=== PATIENT | male | born 1955 | race American Indian/Alaskan Native ===

== ENCOUNTER 2017-11-24 16:01 | Inpatient (IN) | payer MEDICARE ==
[2017-11-24] MEDS ORDERED: SUBLIMAZE IV ONE (16:58)
[2017-11-24] MEDS ORDERED: KEPPRA 1,000 MG/NS 0.75% 100ML 1,000 MG/100 ML BAG IV ONE (16:58)
--- NOTE | 2017-11-24 16:59 | Emergency Department Report ---
<SEBLE ROLDAN - Last Filed: 11/24/17 19:50> ED General Adult HPI - General Chief complaint: Seizure Stated complaint: BACK NECK PAIN Time Seen by Provider: 11/24/17 16:43 Source: patient, family, EMS (ems notes not available at time of chart dictation), RN notes reviewed, old records reviewed Mode of arrival: Stretcher Limitations: Physical Limitation - History of Present Illness Initial comments: This is a 62-year-old male who is not known to this provider previously. He has a history of stroke with residual left-sided deficits, heart disease, pacemaker, atrial fibrillation, currently on xarelto He also has a history of seizure disorder. He ran out of his seizure medication , Keppra, 3 days ago. He reports feeling like he was in his usual state of health and then had a breakthrough seizure today. He reports shaking, fell back out of the wheelchair, hitting his head and his neck. He has achy pain which increases with palpation and decreases with rest. He denies new weakness or numbness. He has no new neurologic symptoms. He currently has no midline neck pain, chest pain, abdominal pain, shortness of breath or urinary symptoms. -: Sudden Severity scale (0 -10): 5 Consistency: now resolved Improves with: none Worsens with: none Associated Symptoms: headaches, seizure, weakness (chronic left-sided weakness) . denies: confusion, chest pain, cough, diaphoresis, fever/chills, loss of appetite, malaise, nausea/vomiting, rash, shortness of breath, syncope - Related Data Allergies Allergy/AdvReac Type Severity Reaction Status Date / Time No Known Allergies Allergy Verified 11/24/17 16:31 ED Review of Systems ROS: Stated complaint: BACK NECK PAIN Other details as noted in HPI Comment: All other systems reviewed and negative ED Past Medical Hx - Past Medical History Previous Medical History?: Yes Hx Heart Attack/AMI: No Hx Congestive Heart Failure: Yes Hx Seizures: Yes Additional medical history: Coronary artery disease, Stroke, A-FIB, Pacemaker - Surgical History Past Surgical History?: Yes Hx Coronary Stent: No Hx Pacemaker: Yes - Social History Smoking Status: Never Smoker Substance Use Type: None ED Physical Exam - General Limitations: Physical Limitation General appearance: alert, in no apparent distress - Head Head exam: Present: atraumatic, normocephalic - Eye Eye exam: Present: normal appearance, EOMI. Absent: nystagmus - ENT ENT exam: Present: normal exam, normal orophraynx, mucous membranes moist, normal external ear exam - Neck Neck exam: Present: normal inspection, full ROM. Absent: tenderness, meningismus - Respiratory Respiratory exam: Present: normal lung sounds bilaterally. Absent: respiratory distress - Cardiovascular Cardiovascular Exam: Present: regular rate, irregular rhythm, normal heart sounds. Absent: systolic murmur, diastolic murmur, rubs, gallop - GI/Abdominal GI/Abdominal exam: Present: soft. Absent: distended, tenderness, guarding, rebound, rigid, pulsatile mass - Rectal Rectal exam: Present: deferred - Extremities Exam Extremities exam: Present: normal inspection, normal capillary refill, other (2 + pulses noted in the bilateral upper, lower extremities. Compartments soft. No long bony tenderness. The pelvis is stable.). Absent: full ROM, calf tenderness - Back Exam Back exam: Present: normal inspection, full ROM. Absent: tenderness, CVA tenderness (R), paraspinal tenderness, vertebral tenderness - Neurological Exam Neurological exam: Present: alert, oriented X3, motor sensory deficit (there is a left upper extremity contracture. There is 3 out of 5 strength left upper extremity. There is 3.5 out of 5 strength left lower extremity.), other ( sensation is intact to light touch bilateral upper, lower extremities. 5/5 strength right upper, right lower extremity.). Absent: CN II-XII intact (there is a left-sided facial droop. Extraocular movements are intact. Shoulder shrug is intact. Tongue is midline.) - Psychiatric Psychiatric exam: Present: normal affect, normal mood - Skin Skin exam: Present: warm, dry, intact, normal color. Absent: rash ED Course Vital Signs 11/24/17 11/24/17 11/24/17 16:08 16:27 16:36 Temperature 98.4 F 98.4 F Pulse Rate 72 72 70 Respiratory 16 16 12 Rate Blood Pressure 110/76 Blood Pressure 110/76 [Right] O2 Sat by Pulse 100 100 97 Oximetry 11/24/17 18:55 Temperature Pulse Rate Respiratory 15 Rate Blood Pressure Blood Pressure [Right] O2 Sat by Pulse 100 Oximetry - Reevaluation(s) Reevaluation #1: 11/24/17 19:50 Care is transferred to the oncoming physician, Dr. Yudi Ruggiero, to contact the hospitalist for admission. ED Medical Decision Making - Lab Data Result diagrams: 11/24/17 17:11 11/24/17 16:58 Vital Signs 11/24/17 11/24/17 11/24/17 16:08 16:27 16:36 Temperature 98.4 F 98.4 F Pulse Rate 72 72 70 Respiratory 16 16 12 Rate Blood Pressure 110/76 Blood Pressure 110/76 [Right] O2 Sat by Pulse 100 100 97 Oximetry 11/24/17 18:55 Temperature Pulse Rate Respiratory 15 Rate Blood Pressure Blood Pressure [Right] O2 Sat by Pulse 100 Oximetry Lab Results 11/24/17 11/24/17 11/24/17 Range/Units 16:58 17:11 17:11 WBC 4.0 L (4.5-11.0) K/mm3 RBC 4.24 (3.65-5.03) M/mm3 Hgb 13.2 (11.8-15.2) gm/dl Hct 39.1 (35.5-45.6) % MCV 92 (84-94) fl MCH 31 (28-32) pg MCHC 34 (32-34) % RDW 14.6 (13.2-15.2) % Plt Count 146 (140-440) K/mm3 PT 15.8 H (12.2-14.9) Sec. INR 1.19 H (0.87-1.13) Sodium 138 (137-145) mmol/L Potassium 3.7 (3.6-5.0) mmol/L Chloride 100.1 (98-107) mmol/L Carbon Dioxide 26 (22-30) mmol/L Anion Gap 16 mmol/L BUN 16 (9-20) mg/dL Creatinine 0.9 (0.8-1.5) mg/dL Estimated GFR > 60 ml/min BUN/Creatinine Ratio 18 % Glucose 90 (75-100) mg/dL Calcium 9.5 (8.4-10.2) mg/dL Total Creatine Kinase (55-170) units/L Digoxin (0.9-2.0) ng/mL 11/24/17 11/24/17 Range/Units 17:11 17:11 WBC (4.5-11.0) K/mm3 RBC (3.65-5.03) M/mm3 Hgb (11.8-15.2) gm/dl Hct (35.5-45.6) % MCV (84-94) fl MCH (28-32) pg MCHC (32-34) % RDW (13.2-15.2) % Plt Count (140-440) K/mm3 PT (12.2-14.9) Sec. INR (0.87-1.13) Sodium (137-145) mmol/L Potassium (3.6-5.0) mmol/L Chloride (98-107) mmol/L Carbon Dioxide (22-30) mmol/L Anion Gap mmol/L BUN (9-20) mg/dL Creatinine (0.8-1.5) mg/dL Estimated GFR ml/min BUN/Creatinine Ratio % Glucose (75-100) mg/dL Calcium (8.4-10.2) mg/dL Total Creatine Kinase 84 (55-170) units/L Digoxin 0.6 L (0.9-2.0) ng/mL - EKG Data -: EKG Interpreted by Me - EKG Data When compared to previous EKG there are: previous EKG unavailable 11/24/17 19:39 Ventricular paced rhythm, good capture, left axis deviation, QTC prolonged, not a STEMI - Radiology Data Radiology results: report reviewed, image reviewed Noncontrast CT scan of the cervical spine is negative for acute disease. DJD is noted. Noncontrast CT scan of the brain shows subacute infarct, as well as old areas of infarct. No hemorrhages noted. - Medical Decision Making Differential diagnosis, including but not limited to: Breakthrough seizure, medication refill, intracranial hemorrhage, DJD, spinal fracture Assessment and plan: 62-year-old gentleman with chronic left-sided hemiparesis, on systemic anticoagulation, who has taken his anticoagulant within the past 24 hours, with breakthrough seizure, most likely in the context of running out of his seizure medication. He is not seizing currently, and has an adjusted NIH score of 0. His left-sided weakness is not a new, worsened or different, and also has a left-sided facial droop which is not a new, worsening or different. Given that his NIH score which adjusted is 0, and given that he has taken his systemic anticoagulation within the past 24 hours, he is not a thrombolysis candidate. A noncontrast CT scan of the brain showed no bleed, but suggested old infarct and acute versus subacute infarct. A noncontrast CT scan of the cervical spine was negative for fracture, dislocation. I have contacted the consulting neurologist on-call, Dr. Eladia Palomo, who agrees the patient is not a TPA or thrombolysis candidate based on the history, agrees with IV loading dose of Keppra, and also agrees that based on the history , patient does not require emergent angiogram of the head and neck. She does agree that it would be appropriate to admit the patient for subacute stroke workup with appropriate imaging and diagnostics. The Hospital physician is paged to arrange admission. I discussed this with the patient and his daughter, both of whom were amenable to hospitalization to exclude recurrent stroke. Critical care attestation.: If time is entered above; I have spent that time in minutes in the direct care of this critically ill patient, excluding procedure time. ED Disposition Disposition: -09 OP ADMIT IP TO THIS HOSP Is pt being admited?: Yes Does the pt Need Aspirin: Yes Condition: Good Referrals: PRIMARY CARE, [Primary Care Provider] - 3-5 Days <MAYANK RUGGIERO III - Last Filed: 11/24/17 21:16> ED Course - Consultations Consultation #1: Hospitalist consulted for admission. Dr. Kennedy to assume care and admit patient. Full report given to Dr. Kennedy 11/24/17 21:16 ED Medical Decision Making - Lab Data Result diagrams: 11/24/17 17:11 11/24/17 16:58
[2017-11-24 17:28] LABS: Hematocrit 39.1 % (35.5-45.6); Hemoglobin 13.2 gm/dl (11.8-15.2); Mean Corpuscular HGB Conc 34 % (32-34); Mean Corpuscular Hemoglobin 31 pg (28-32); Mean Corpuscular Volume 92 fl (84-94); Platelet Count 146 K/mm3 (140-440); Red Blood Count 4.24 M/mm3 (3.65-5.03); Red Cell Distribution Width 14.6 % (13.2-15.2)
[2017-11-24 17:33] LABS: INR 1.19 (0.87-1.13)
[2017-11-24 17:42] LABS: BUN/Creatinine Ratio 18; Blood Urea Nitrogen 16 mg/dL (9-20); Calcium 9.5 mg/dL (8.4-10.2); Hemolysis Index 1
--- NOTE | 2017-11-24 18:29 | Cat Scan Report ---
FINAL REPORT EXAM: CT HEAD/BRAIN WO CON HISTORY: fall head trauma on xarelto head ache TECHNIQUE: 2.5 millimeter axial images from the skullbase to the vertex. Comparison: None FINDINGS: There is a large area of infarct in the right frontal, temporal and parietal lobes. A portion of the infarct appears to be chronic. A portion of the infarct appears to be acute or subacute. There is a chronic infarct in the right basal ganglia. There is a chronic infarct in the right cerebellum. There is no evidence of intracranial hemorrhage or significant mass effect. Ventricular size is concordant with the degree of volume loss. The visualized portions of the orbits, paranasal and mastoid sinuses are unremarkable. The bony structures are unremarkable in appearance. There is no evidence of fracture. IMPRESSION: 1. Large area of infarct right frontal, temporal and parietal lobes and right basal ganglia. A portion of the infarct appears to be chronic and portion of the infarct appears to be acute or subacute. If there is a clinical suspicion of acute cerebral ischemia, short-term follow-up CT imaging may be helpful. Comparison with previous imaging studies would also be helpful. The presence of an AICD demonstrated on the cavalry scout image for a cervical spine performed today would likely preclude obtaining an MRI. 2. Chronic infarct right cerebellum. 3. No evidence of intracranial hemorrhage or significant mass effect.
--- NOTE | 2017-11-24 18:35 | Cat Scan Report ---
FINAL REPORT EXAM: CT CERVICAL SPINE WO CON HISTORY: fall neck pain TECHNIQUE: Axial helical imaging through the cervical spine with sagittal and coronal reformatted images obtained. Comparison: None FINDINGS: There is reversal of the normal lordotic curve of the cervical spine. The vertebral heights are maintained. The disc spaces appear to be maintained. There is multiple level bony canal stenosis secondary to spondylitic change superimposed on congenital cervical canal stenosis. Visualization detail the contents of the cervical canal is limited by artifact. There is no evidence of fracture or subluxation. The paraspinous soft tissues are unremarkable. There is partial visualization of an AICD. Small collections of air in the venous structures of the neck and skull base are consistent with sequela of recent venous vascular access procedure. IMPRESSION: 1. No evidence of fracture or subluxation. 2. Cervical canal stenosis secondary to spondylitic change superimposed on congenital cervical canal stenosis. 3. Visualization detail the contents of the cervical canal is limited by artifact. Pathology within the cervical canal cannot be excluded with this study. 4. Partial visualization of an AICD.
[2017-11-24] MEDS ORDERED: BABY ASPIRIN PO ONE (18:57)
[2017-11-24 19:30] LABS: Bilirubin,Urine NEG (Negative); Blood,Urine NEG (Negative); Color,Urine Yellow (Yellow); Protein,Urine <15 mg/dL mg/dL (Negative)
[2017-11-24 19:59] LABS: INR 1.21 (0.87-1.13); Partial Thromboplastin Time 30.3 Sec. (24.2-36.6)
[2017-11-24 20:57] LABS: Chol/HDL Ratio 1.91 %
--- NOTE | 2017-11-24 22:48 | History and Physical Report ---
History of Present Illness Date of examination: 11/24/17 History of present illness: 62 year old man with a history of coronary artery disease, seizure, CVA with left-sided weakness, CHF, A. fib comes emergency room complaining of having blurred vision and then having a seizure at home. He stated that he fell out of his wheelchair, seizure lasted for a few seconds. He has chronic left-sided weakness and slurred speech which has not worsened Review of systems Constitutional: no weight loss, chills, fever Ears, eyes, nose, mouth and throat: no nasal congestion, no nasal discharge, no sinus pressure, no vision change, no red eye. Neck: No neck pain or rigidity. Cardiovascular: no chest pain, palpitations Respiratory: no cough, shortness of breath Gastrointestinal: no abdominal pain hematochezia Genitourinary : no frequency , no hematuria Musculoskeletal: no joint swelling or muscle ache Integumentary: no rash, no pruritis Neurological: no parathesias, no numbness, no focal weakness Endocrine: no cold or heat intolerance, no polyuria or polydipsia Hematologic/Lymphatic: no easy bruising, no easy bleeding, no gland swelling Allergic/Immunologic: no urticaria, no angioedema. PAST MEDICAL HISTORY:coronary artery disease, seizure, CVA with left-sided weakness, CHF, A. fib PAST SURGICAL HISTORY: Pacemaker SOCIAL HISTORY: No alcohol, no drugs, tobacco FAMILY HISTORY: Hypertension Medications and Allergies Allergies Allergy/AdvReac Type Severity Reaction Status Date / Time No Known Allergies Allergy Verified 11/24/17 16:31 Home Medications Medication Instructions Recorded Confirmed Last Taken Type Aspirin [Aspirin BABY CHEW TAB] 81 mg PO DAILY 11/24/17 11/24/17 Unknown History Bisacodyl [Dulcolax suppos] 10 mg [place] DAILY 11/24/17 11/24/17 Unknown History Diclofenac Sodium [Voltaren] 100 gm TP QID 11/24/17 11/24/17 Unknown History Digoxin [Lanoxin] 0.125 mg PO DAILY 11/24/17 11/24/17 Unknown History Ferrous Sulfate [Feosol 325 MG tab] 325 mg PO TID 11/24/17 11/24/17 Unknown History Finasteride [Proscar] 5 mg PO DAILY 11/24/17 11/24/17 Unknown History Oxybutynin Chloride [Ditropan Xl] 10 mg PO DAILY 11/24/17 11/24/17 Unknown History Rivaroxaban [Xarelto] 20 mg PO DAILY 11/24/17 11/24/17 Unknown History Rivaroxaban [Xarelto] 20 mg PO DAILY 11/24/17 11/24/17 Unknown History Rosuvastatin Calcium [Crestor] 20 mg PO QHS 11/24/17 11/24/17 Unknown History Sennosides [Senna] 17.2 mg PO DAILY 11/24/17 11/24/17 Unknown History Spironolactone [Aldactone] 25 mg PO DAILY 11/24/17 11/24/17 Unknown History Ciprofloxacin HCl [Ciprofloxacin 500 mg PO Q12HR #6 tab 11/27/17 Unknown Rx TAB] Cyclobenzaprine [Flexeril 10 MG 10 mg PO BID PRN #30 tablet 11/27/17 Unknown Rx TAB] HYDROcodone/APAP 5-325 [[place] 1 each PO Q6H PRN #14 tablet 11/27/17 Unknown Rx 5-325 mg TAB] levETIRAcetam [Keppra TAB] 1,500 mg PO BID #60 tablet 11/27/17 Unknown Rx Exam - Physical Exam Narrative exam: Gen. appearance: Patient lying in bed, no apparent distress HEENT: Normocephalic, atraumatic, pupils equally round and reactive to light, extraocular movement intact, and no sclericterus,. No JVD or thyromegaly or nodule,neck supple, no carotid bruit ,mucous membranes moist, no exudate or erythema Heart: S1, S2, regular rate and rhythm Lungs: Clear bilaterally, breathing comfortable Abdomen: Positive bowel sounds, non-tender, nondistended, no organomegaly Extremity:no edema cyanosis, clubbing Skin: no rash, dry, warm Neuro: Oriented 3, cranial nerves II-12 intact, speech is slurred, left-sided weakness - Constitutional Vitals: Temp Pulse Resp BP Pulse Ox 98.4 F 70 24 119/86 100 11/24/17 16:27 11/24/17 21:00 11/24/17 21:00 11/24/17 21:00 11/24/17 20:00 Results - Labs CBC & Chem 7: 11/27/17 03:36 11/27/17 03:36 Labs: Abnormal lab results 11/24/17 11/24/1711/24/18 Range/Units 17:11 17:11 17:11 WBC 4.0 L (4.5-11.0) K/mm3 PT 15.8 H (12.2-14.9) Sec. INR 1.19 H (0.87-1.13) Troponin T (0.00-0.029) ng/mL HDL Cholesterol (40-59) mg/dL Urine WBC (Auto) (0.0-6.0) /HPF Digoxin 0.6 L (0.9-2.0) ng/mL 11/24/17 11/24/17 11/24/17 Range/Units 18:54 19:14 19:14 WBC (4.5-11.0) K/mm3 PT 16.0 H (12.2-14.9) Sec. INR 1.21 H (0.87-1.13) Troponin T 0.042 H (0.00-0.029) ng/mL HDL Cholesterol 60 H (40-59) mg/dL Urine WBC (Auto) 74.0 H (0.0-6.0) /HPF Digoxin (0.9-2.0) ng/mL - Imaging and Cardiology CT scan - chest: report reviewed Assessment and Plan CT cervical spine reviewed Assessment Subacute CVA Seizure, acute on chronic Abnormal cardiac enzymes CHF, stable Coronary artery disease A. fib Plan Admit to medicine Obtain MRI of the head, carotid Doppler, echo Do neurochecks, swallow screen Consult physical, occupational therapy, neurology Start antiplatelet agent, statin DVT prophylaxis with xarelto
[2017-11-25] MEDS ORDERED: SODIUM CHLORIDE FLUSH SYRINGE 10 ML IV PRN (00:09)
[2017-11-25] MEDS ORDERED: ZOFRAN IV PRN (00:09)
[2017-11-25] MEDS ORDERED: MILK OF MAGNESIA PO PRN (00:09)
[2017-11-25] MEDS ORDERED: REGLAN PO PRN (00:09)
[2017-11-25] MEDS ORDERED: PHENERGAN PR PRN (00:09)
[2017-11-25] MEDS ORDERED: APRESOLINE IV PRN (00:09)
[2017-11-25 01:10] LABS: Creatine Kinase MB 1.8 ng/mL (0.0-4.0)
[2017-11-25] MEDS ORDERED: DUONEB *Not for PRN Use IH SCH (02:00)
[2017-11-25] MEDS ORDERED: PROVENTIL IH PRN ×2 (02:46→03:02)
[2017-11-25] MEDS: ROCEPHIN/NS 1 GM/50 ML 1 GM/50 ML BAG IV SCH (05:08)
[2017-11-25] MEDS ORDERED: DULCOLAX PR PRN (10:00)
[2017-11-25] MEDS ORDERED: NON-FORMULARY (Oxybutynin Chloride [Ditropan Xl] 10 MG) PO SCH (10:00)
[2017-11-25] MEDS ORDERED: ASPIRIN PO SCH (10:00)
[2017-11-25] MEDS ORDERED: LOVENOX SUB-Q SCH ×2 (10:00)
[2017-11-25] MEDS ORDERED: KEPPRA PO SCH ×2 (10:00→14:04)
[2017-11-25] MEDS: PROSCAR PO SCH (10:01)
[2017-11-25] MEDS: SENOKOT PO SCH (10:01)
[2017-11-25] MEDS: BABY ASPIRIN PO SCH (10:01)
[2017-11-25] MEDS: FEOSOL PO SCH ×3 (10:01→21:13)
[2017-11-25] MEDS: DITROPAN XL PO SCH (10:01)
[2017-11-25] MEDS: LANOXIN PO SCH (10:02)
[2017-11-25] MEDS: XARELTO PO SCH (17:29)
[2017-11-25] MEDS: TYLENOL PO PRN (18:32)
--- NOTE | 2017-11-25 19:12 | Progress Note ---
Assessment and Plan Seizure, acute on chronic Subacute CVA, ruled out, chronic changes per Neuro h/o CVA with left sided hameparesis w/o worsening symptom Abnormal cardiac enzymes, no chest pain CHF, stable Coronary artery disease h/o A. fib - monitor at telemetry - cannot Obtain MRI of the head as has ICD, - follow carotid Doppler, echo - Do neurochecks, swallow screen - Consulted physical, occupational therapy, neurology - cont antiplatelet agent, statin - DVT prophylaxis with xarelto - increased dose of keppra to 1500 bid Subjective Date of service: 11/25/17 Interval history: pt seen and examined No acute issue Discussed with neurology, no new stroke on CT Cannot do MRI as patient has ICD Objective - Constitutional Vitals: Vital Signs - 12hr 11/25/17 11/25/17 11/25/17 07:45 09:35 10:02 Temperature 98.6 F 98.5 F Pulse Rate 59 L 71 71 Respiratory 20 20 Rate Blood Pressure 100/67 Blood Pressure 234/102 100/67 [Right] O2 Sat by Pulse 98 100 Oximetry 11/25/17 11/25/17 11/25/17 10:17 11:55 15:31 Temperature 98.2 F 98.4 F Pulse Rate 71 68 Respiratory 18 18 Rate Blood Pressure Blood Pressure 102/72 104/71 [Right] O2 Sat by Pulse 97 100 99 Oximetry General appearance: Present: no acute distress, other (elderly) - EENT Eyes: PERRL, EOM intact ENT: hearing intact, clear oral mucosa Ears: bilateral: normal - Neck Neck: supple, normal ROM - Respiratory Respiratory effort: normal Respiratory: bilateral: CTA - Cardiovascular Rhythm: regular Heart Sounds: Present: S1 & S2. Absent: gallop, rub Extremities: pulses intact, No edema, normal color, Full ROM - Gastrointestinal General gastrointestinal: Present: soft, non-tender, non-distended, normal bowel sounds - Integumentary Integumentary: clear, warm, dry - Musculoskeletal Musculoskeletal: 1, strength equal bilaterally - Neurologic Neurologic: other (left sided hameparesis) - Psychiatric Psychiatric: appropriate mood/affect - Labs CBC & Chem 7: 11/24/17 17:11 11/24/17 16:58 Labs: Abnormal lab results 11/24/17 11/24/17 11/24/17 Range/Units 18:54 19:14 19:14 PT 16.0 H (12.2-14.9) Sec. INR 1.21 H (0.87-1.13) Troponin T 0.042 H (0.00-0.029) ng/mL HDL Cholesterol 60 H (40-59) mg/dL Urine WBC (Auto) 74.0 H (0.0-6.0) /HPF 11/25/17 Range/Units 00:24 PT (12.2-14.9) Sec. INR (0.87-1.13) Troponin T 0.041 H (0.00-0.029) ng/mL HDL Cholesterol (40-59) mg/dL Urine WBC (Auto) (0.0-6.0) /HPF
[2017-11-25] MEDS: KEPPRA PO SCH (21:14)
[2017-11-25] MEDS: PRAVACHOL PO SCH (21:14)
[2017-11-25] MEDS ORDERED: NON-FORMULARY (Rosuvastatin Calcium [Crestor] 20 MG) PO SCH (22:00)
[2017-11-26] MEDS: LANOXIN PO SCH (09:08)
[2017-11-26] MEDS: FEOSOL PO SCH ×3 (09:08→22:46)
[2017-11-26] MEDS: SENOKOT PO SCH (09:08)
[2017-11-26] MEDS: TYLENOL PO PRN (09:08)
[2017-11-26] MEDS: BABY ASPIRIN PO SCH (09:09)
[2017-11-26] MEDS: KEPPRA PO SCH ×2 (09:11→22:46)
[2017-11-26] MEDS: DITROPAN XL PO SCH (09:43)
[2017-11-26] MEDS: PROSCAR PO SCH (09:43)
[2017-11-26] MEDS: ROCEPHIN/NS 1 GM/50 ML 1 GM/50 ML BAG IV SCH (09:44)
--- NOTE | 2017-11-26 17:13 | Progress Note ---
Assessment and Plan Seizure, acute on chronic - - increased dose of keppra to 1500 bid Subacute CVA, ruled out, chronic changes per Neuro - cannot Obtain MRI of the head as has ICD, no change in left sided weakness - cont to Do neurochecks, - Consulted physical, occupational therapy, neurology - cont antiplatelet agent, statin h/o CVA with left sided hameparesis w/o worsening symptom - cont aspirin, statin - Chronic changes on CT head Abnormal cardiac enzymes, no chest pain - consulted cardiology CHF, stable, EF 10% - - consult cardiology for low EF, get medical record from [place] Coronary artery disease - get records from [place] Neck pain - Cervical Ct has no fracture, start flexeril h/o A. fib - on xarelto UTI, started on rocephin iv DVT Px, on xarelto Brief History: a history of coronary artery disease, seizure, CVA with left-sided weakness, CHF , A. fib comes emergency room complaining of having blurred vision and then having a seizure at home. Radiological data: CT cervical spine: 1. No evidence of fracture or subluxation. 2. Cervical canal stenosis secondary to spondylitic change superimposed on congenital cervical canal stenosis. 3. Visualization detail the contents of the cervical canal is limited by artifact. Pathology within the cervical canal cannot be excluded with this study. 4. Partial visualization of an AICD. CT head: 1. Large area of infarct right frontal, temporal and parietal lobes and right basal ganglia. A portion of the infarct appears to be chronic and portion of the infarct appears to be acute or subacute. If there is a clinical suspicion of acute cerebral ischemia, short-term follow-up CT imaging may be helpful. Comparison with previous imaging studies would also be helpful. The presence of an AICD demonstrated on the apprentice plant attendant image for a cervical spine performed today would likely preclude obtaining an MRI. 2. Chronic infarct right cerebellum. 3. No evidence of intracranial hemorrhage or significant mass effect. Subjective Date of service: 11/26/17 Interval history: pt seen and examined No acute issue Discussed with neurology, no new stroke on CT Could not do MRI as patient has ICD Patient c/o neck pain today Objective - Exam Narrative Exam: General appearance: Present: no acute distress, other (elderly) - EENT Eyes: PERRL, EOM intact ENT: hearing intact, clear oral mucosa Ears: bilateral: normal - Neck Neck: supple, normal ROM - Respiratory Respiratory effort: normal Respiratory: bilateral: CTA - Cardiovascular Rhythm: regular Heart Sounds: Present: S1 & S2. Absent: gallop, rub Extremities: pulses intact, No edema, normal color, Full ROM - Gastrointestinal General gastrointestinal: Present: soft, non-tender, non-distended, normal bowel sounds - Integumentary Integumentary: clear, warm, dry - Musculoskeletal Musculoskeletal: 1, strength equal bilaterally - Neurologic Neurologic: other (left sided hameparesis) - Psychiatric Psychiatric: appropriate mood/affect - Constitutional Vitals: Vital Signs - 12hr 11/26/17 05:16 Temperature 99.7 F H Pulse Rate 70 Respiratory 18 Rate Blood Pressure 118/83 O2 Sat by Pulse 99 Oximetry - Labs CBC & Chem 7: 11/24/17 17:11 11/24/17 16:58
[2017-11-26] MEDS: XARELTO PO SCH (18:56)
[2017-11-26] MEDS: PRAVACHOL PO SCH (22:46)
[2017-11-26] MEDS: NORCO 5/325 PO PRN (22:47)
[2017-11-27 04:09] LABS: Basophils # (Auto) 0.1 K/mm3 (0.0-0.1); Basophils % (Auto) 1.2 % (0.0-1.8); Eosinophils # (Auto) 0.1 K/mm3 (0.0-0.4); Eosinophils % (Auto) 2.9 % (0.0-4.3); Hemoglobin 13.4 gm/dl (11.8-15.2); Lymphocytes % (Auto) 22.4 % (13.4-35.0); Mean Corpuscular HGB Conc 33 % (32-34); Mean Corpuscular Hemoglobin 31 pg (28-32); Mean Corpuscular Volume 92 fl (84-94); Monocytes # (Auto) 0.5 K/mm3 (0.0-0.8); Monocytes % (Auto) 10.7 % (0.0-7.3); Platelet Count 152 K/mm3 (140-440); Red Blood Count 4.35 M/mm3 (3.65-5.03); Red Cell Distribution Width 15.7 % (13.2-15.2)
[2017-11-27 04:28] LABS: BUN/Creatinine Ratio 18; Blood Urea Nitrogen 16 mg/dL (9-20); Calcium 9.1 mg/dL (8.4-10.2); Hemolysis Index 14
--- NOTE | 2017-11-27 08:17 | Discharge Summary ---
Providers - Providers Date of Admission: 11/24/17 22:47 Date of discharge: 11/27/17 Attending physician: KATIE REYNAGA MD 11/25/17 00:09 Occupational Therapy Evaluate and Treat [CONS] Routine Comment: Reason For Exam: Neuro deficits Physical Therapy Evaluation and Treat [CONS] Routine Comment: Reason For Exam: Neuro deficits 11/26/17 14:01 Consult to Physician [CONS] Routine Comment: Consulting Provider: SABION GUZMAN Physician Instructions: Reason For Exam: CHF Primary care physician: FOOD TESTER Hospitalization Reason for admission: seizure Condition: Good Hospital course: 62 year old male a history of coronary artery disease, seizure, CVA with left- sided weakness, CHF, A. fib wheel chair bound comes emergency room complaining of having blurred vision and then having a seizure at home. He stated that he fell out of his wheelchair, seizure lasted for a few seconds. He has chronic left-sided weakness and slurred speech which has not worsened Seizure, acute on chronic - - increased dose of keppra to 1500 bid Subacute CVA, ruled out, chronic changes per Neuro - cannot Obtain MRI of the head as has ICD, no change in left sided weakness - cont to Do neurochecks, - Consulted physical, occupational therapy, neurology - cont antiplatelet agent, statin h/o CVA with left sided hameparesis w/o worsening symptom - cont aspirin, statin - Chronic changes on CT head Abnormal cardiac enzymes, no chest pain - consulted cardiology CHF, stable, EF 10% - - consult cardiology for low EF, get medical record from [place] Coronary artery disease - get records from [place] Neck pain - Cervical Ct has no fracture, start flexeril h/o A. fib - on xarelto UTI, started on rocephin iv DVT Px, on xarelto Brief History: a history of coronary artery disease, seizure, CVA with left-sided weakness, CHF , A. fib comes emergency room complaining of having blurred vision and then having a seizure at home. Radiological data: CT cervical spine: 1. No evidence of fracture or subluxation. 2. Cervical canal stenosis secondary to spondylitic change superimposed on congenital cervical canal stenosis. 3. Visualization detail the contents of the cervical canal is limited by artifact. Pathology within the cervical canal cannot be excluded with this study. 4. Partial visualization of an AICD. CT head: 1. Large area of infarct right frontal, temporal and parietal lobes and right basal ganglia. A portion of the infarct appears to be chronic and portion of the infarct appears to be acute or subacute. If there is a clinical suspicion of acute cerebral ischemia, short-term follow-up CT imaging may be helpful. Comparison with previous imaging studies would also be helpful. The presence of an AICD demonstrated on the public relations counselor image for a cervical spine performed today would likely preclude obtaining an MRI. 2. Chronic infarct right cerebellum. 3. No evidence of intracranial hemorrhage or significant mass effect. Subjective Date of service: 11/26/17 Interval history: pt seen and examined No acute issue Discussed with neurology, no new stroke on CT Could not do MRI as patient has ICD Patient c/o neck pain today Disposition: DC/TX- HOME UNDER HOME [facility] Exam - Physical Exam Narrative exam: Narrative Exam: General appearance: Present: no acute distress, other (elderly) - EENT Eyes: PERRL, EOM intact ENT: hearing intact, clear oral mucosa Ears: bilateral: normal - Neck Neck: supple, normal ROM - Respiratory Respiratory effort: normal Respiratory: bilateral: CTA - Cardiovascular Rhythm: regular Heart Sounds: Present: S1 & S2. Absent: gallop, rub Extremities: pulses intact, No edema, normal color, Full ROM - Gastrointestinal General gastrointestinal: Present: soft, non-tender, non-distended, normal bowel sounds - Integumentary Integumentary: clear, warm, dry - Musculoskeletal Musculoskeletal: 1, strength equal bilaterally - Neurologic Neurologic: other (left sided hameparesis) - Psychiatric Psychiatric: appropriate mood/affect - Constitutional Vitals: Temp Pulse Resp BP Pulse Ox 98.9 F 70 18 113/84 100 11/27/17 05:40 11/27/17 05:40 11/27/17 05:40 11/27/17 05:40 11/27/17 05:40 Plan Activity: advance as tolerated, no driving until cleared by PCP, fall precautions Diet: low salt Special Instructions: record daily BP diary, physical therapy, occupational therapy, home health RN Additional Instructions: outpatient repeat CT head in 2-3 days with PCP Follow up with: ARGENIS SPENCE MD [Primary Care Provider] - 3-5 Days HORTENSIA AMARO MD [Staff Physician] - 7 Days SABINO GUZMAN MD [Staff Physician] - 7 Days Prescriptions: Ciprofloxacin HCl [Ciprofloxacin TAB] 500 mg PO Q12HR #6 tab Cyclobenzaprine [Flexeril 10 MG TAB] 10 mg PO BID PRN #30 tablet PRN Reason: Muscle Spasm HYDROcodone/APAP 5-325 [[place] 5-325 mg TAB] 1 each PO Q6H PRN #14 tablet PRN Reason: Pain, Moderate (4-6) levETIRAcetam [Keppra TAB] 1,500 mg PO BID #60 tablet
--- NOTE | 2017-11-27 10:51 | XRay Report ---
FINAL REPORT EXAM: XR SPINE 1V SPECIFY HISTORY: neck pain/lateral view TECHNIQUE: Two lateral views of the cervical spine. PRIORS: CT cervical spine November 24, 2017. FINDINGS: Slight reversal and straightening of the cervical alignment centered at C4-C5. Mild disc space narrowing C5-C6. Prevertebral soft tissues are unremarkable. No obvious fracture or significant subluxation. Spinous process ossicles or dystrophic calcifications at C6-T1. IMPRESSION: Limited evaluation. Nonspecific straightening and slight reversal of the cervical alignment. Mild discogenic disease at C5-C6.
[2017-11-27] MEDS: ROCEPHIN/NS 1 GM/50 ML 1 GM/50 ML BAG IV SCH (12:26)
[2017-11-27] MEDS: SENOKOT PO SCH (12:26)
[2017-11-27] MEDS: LANOXIN PO SCH (12:27)
[2017-11-27] MEDS: PROSCAR PO SCH (12:27)
[2017-11-27] MEDS: FEOSOL PO SCH ×3 (12:28→20:40)
[2017-11-27] MEDS: BABY ASPIRIN PO SCH (12:28)
[2017-11-27] MEDS: KEPPRA PO SCH ×2 (12:30→21:51)
[2017-11-27] MEDS: DITROPAN XL PO SCH (13:02)
--- NOTE | 2017-11-27 13:29 | Consultation ---
History of Present Illness Consult date: 11/27/17 Consult reason: congestive heart failure History of present illness: Patient is a 62-year-old man who was admitted to the hospital with a suspected seizure event, and that caused him to fall out of his wheelchair. He has a history of seizures, and on presentation stated that he ran out of his seizure medications for 3 days. Cardiology consultation was requested for "CHF", but there are no clinical symptoms or findings suggestive of heart failure or fluid overload. A chest x-ray has not been done through the patient's presentation. Patient does have a long cardiovascular disease history, usually followed at the [facility]. Several years ago, he was diagnosed with a dilated nonischemic cardiomyopathy, and a [employer] defibrillator was implanted. His last ICD interrogation was 2 months ago. In addition, he has paroxysmal atrial fibrillation and is on oral anticoagulation with Xarelto. He also has a dense left hemiplegia from a previous CVA. Currently the patient is on the telemetry unit, comfortable, in no acute distress, alert and oriented. His speech is mildly impaired from his previous stroke. ECG is a ventricular paced rhythm. On this presentation, an echocardiogram shows a severe dilated cardiomyopathy, ejection fraction 10-15%. On the echocardiogram, he was also noted that there was an echogenic lesion on the ICD wire in the right heart, suggestive of possible thrombus. Past History Past Medical History: atrial fib, heart failure, hypertension Medications and Allergies Allergies Allergy/AdvReac Type Severity Reaction Status Date / Time No Known Allergies Allergy Verified 11/24/17 16:31 Home Medications Medication Instructions Recorded Confirmed Last Taken Type Aspirin [Aspirin BABY CHEW TAB] 81 mg PO DAILY 11/24/17 11/24/17 Unknown History Bisacodyl [Dulcolax suppos] 10 mg [place] DAILY 11/24/17 11/24/17 Unknown History Diclofenac Sodium [Voltaren] 100 gm TP QID 11/24/17 11/24/17 Unknown History Digoxin [Lanoxin] 0.125 mg PO DAILY 11/24/17 11/24/17 Unknown History Ferrous Sulfate [Feosol 325 MG tab] 325 mg PO TID 11/24/17 11/24/17 Unknown History Finasteride [Proscar] 5 mg PO DAILY 11/24/17 11/24/17 Unknown History Oxybutynin Chloride [Ditropan Xl] 10 mg PO DAILY 11/24/17 11/24/17 Unknown History Rivaroxaban [Xarelto] 20 mg PO DAILY 11/24/17 11/24/17 Unknown History Rivaroxaban [Xarelto] 20 mg PO DAILY 11/24/17 11/24/17 Unknown History Rosuvastatin Calcium [Crestor] 20 mg PO QHS 11/24/17 11/24/17 Unknown History Sennosides [Senna] 17.2 mg PO DAILY 11/24/17 11/24/17 Unknown History Spironolactone [Aldactone] 25 mg PO DAILY 11/24/17 11/24/17 Unknown History Ciprofloxacin HCl [Ciprofloxacin 500 mg PO Q12HR #6 tab 11/27/17 Unknown Rx TAB] Cyclobenzaprine [Flexeril 10 MG 10 mg PO BID PRN #30 tablet 11/27/17 Unknown Rx TAB] HYDROcodone/APAP 5-325 [[place] 1 each PO Q6H PRN #14 tablet 11/27/17 Unknown Rx 5-325 mg TAB] levETIRAcetam [Keppra TAB] 1,500 mg PO BID #60 tablet 11/27/17 Unknown Rx Active Meds: Active Medications Acetaminophen (Tylenol) 650 mg PO Q4H PRN PRN Reason: Pain, Mild (1-3) Last Admin: 11/26/17 09:08 Dose: 650 mg Acetaminophen/Hydrocodone Bitart ([place] 5/325) 1 each PO Q6H PRN PRN Reason: Pain, Moderate (4-6) Last Admin: 11/26/17 22:47 Dose: 1 each Albuterol (Proventil) 2.5 mg IH TIDRT PRN PRN Reason: protocol Aspirin (Baby Aspirin) 81 mg PO DAILY [facility] Last Admin: 11/27/17 12:28 Dose: 81 mg Atorvastatin Calcium (Lipitor) 40 mg PO QHS [facility] Last Admin: 11/26/17 22:46 Dose: 40 mg Bisacodyl (Dulcolax) 10 mg [place] QDAY PRN PRN Reason: Constipation Cyclobenzaprine HCl (Flexeril) 10 mg PO Q8H PRN PRN Reason: Muscle Spasm Digoxin (Lanoxin) 0.125 mg PO DAILY [facility] Last Admin: 11/27/17 12:27 Dose: 0.125 mg Ferrous Sulfate (Feosol) 325 mg PO TID [facility] Last Admin: 11/27/17 12:28 Dose: 325 mg Finasteride (Proscar) 5 mg PO DAILY [facility] Last Admin: 11/27/17 12:27 Dose: 5 mg Hydralazine HCl (Apresoline) 5 mg IV Q6H PRN PRN Reason: Keep SBP between 160-185 mm Hg Ceftriaxone Sodium (Rocephin/Ns 1 Gm/50 Ml) 1 gm in 50 mls @ 100 mls/hr IV Q24HR [facility]; Protocol Last Admin: 11/27/17 12:26 Dose: 100 mls/hr Levetiracetam (Keppra) 1,500 mg PO BID [facility] Last Admin: 11/27/17 12:30 Dose: 1,500 mg Magnesium Hydroxide (Milk Of Magnesia) 30 ml PO Q4H PRN PRN Reason: Constipation Metoclopramide HCl (Reglan) 10 mg PO Q6H PRN PRN Reason: Nausea And Vomiting Ondansetron HCl (Zofran) 4 mg IV Q8H PRN PRN Reason: Nausea And Vomiting Oxybutynin Chloride (Ditropan Xl) 10 mg PO QDAY [facility] Last Admin: 11/27/17 13:02 Dose: 10 mg Promethazine HCl (Phenergan) 25 mg [place] Q6H PRN PRN Reason: Nausea And Vomiting Rivaroxaban (Xarelto) 20 mg PO QPM@1700 [facility]; Protocol Last Admin: 11/26/17 18:56 Dose: 20 mg Senna (Senokot) 17.2 mg PO DAILY [facility] Last Admin: 11/27/17 12:26 Dose: 17.2 mg Sodium Chloride (Sodium Chloride Flush Syringe 10 Ml) 10 ml IV PRN PRN PRN Reason: LINE FLUSH Review of Systems Cardiovascular: no chest pain, no orthopnea, no palpitations, no rapid/ irregular heart beat, no edema, no syncope, no lightheadedness, no shortness of breath Physical Examination Vital Signs Temp Pulse Resp BP Pulse Ox 98.4 F 72 16 110/76 100 11/24/17 16:08 11/24/17 16:08 11/24/17 16:08 11/24/17 16:08 11/24/17 16:08 General appearance: no acute distress HEENT: Positive: PERRL Neck: Positive: neck supple Cardiac: Positive: Reg Rate and Rhythm Lungs: Positive: Decreased Breath Sounds Neuro: Positive: Weakness (left hemiplegia) Abdomen: Positive: Soft Male genitourinary: Positive: deferred Skin: Positive: Clear Extremities: Absent: edema Results 11/27/17 03:36 11/27/17 03:36 CBC 11/27/17 Range/Units 03:36 WBC 4.3 L (4.5-11.0) K/mm3 RBC 4.35 (3.65-5.03) M/mm3 Hgb 13.4 (11.8-15.2) gm/dl Hct 40.0 (35.5-45.6) % Plt Count 152 (140-440) K/mm3 Lymph # 1.0 L (1.2-5.4) K/mm3 [place] # 0.5 (0.0-0.8) K/mm3 Eos # 0.1 (0.0-0.4) K/mm3 Baso # 0.1 (0.0-0.1) K/mm3 Comprehensive Metabolic Panel 11/27/17 Range/Units 03:36 Sodium 138 (137-145) mmol/L Potassium 4.0 (3.6-5.0) mmol/L Chloride 101.7 (98-107) mmol/L Carbon Dioxide 24 (22-30) mmol/L BUN 16 (9-20) mg/dL Creatinine 0.9 (0.8-1.5) mg/dL Glucose 93 (75-100) mg/dL Calcium 9.1 (8.4-10.2) mg/dL EKG interpretations Pacemaker: ventricular pacing w/capt Assessment and Plan - Patient Problems (1) Seizure Current Visit: Yes Status: Acute Plan to address problem: We will defer to neurology and internal medicine for management of the patient' s presenting seizure disorder. (2) Intracardiac thrombus Current Visit: Yes Status: Acute Plan to address problem: Finding of a possible intracardiac thrombus, will be better defined with [facility] imaging. (3) Nonischemic dilated cardiomyopathy Current Visit: Yes Status: Acute Plan to address problem: Medical therapy for nonischemic cardiomyopathy, afterload reducing agents, beta blockers as tolerated. We will request an ICD interrogation to assess cardiac rhythm abnormalities during his seizure episode. (4) Paroxysmal atrial fibrillation Current Visit: Yes Status: Acute Plan to address problem: Continue oral anticoagulation with Xarelto.
--- NOTE | 2017-11-27 13:55 | Progress Note ---
Assessment and Plan Assessment and plan: 62 year old male a history of coronary artery disease, seizure, CVA with left- sided weakness, CHF, A. fib wheel chair bound comes emergency room complaining of having blurred vision and then having a seizure at home. He stated that he fell out of his wheelchair, seizure lasted for a few seconds. He has chronic left-sided weakness and slurred speech which has not worsened Seizure, acute on chronic - - increased dose of keppra to 1500 bid - Neurology conulst - Repeat ct head IN AM Subacute CVA, ruled out, chronic changes per Neuro - cannot Obtain MRI of the head as has ICD, no change in left sided weakness - cont to Do neurochecks, - Consulted physical, occupational therapy, neurology - cont antiplatelet agent, statin h/o CVA with left sided hameparesis w/o worsening symptom - cont aspirin, statin - Chronic changes on CT head Abnormal cardiac enzymes, no chest pain - consulted cardiology -Patient with possible Intercardiac thrombus. [facility]AUSHIK-to be arranged by cardiology -Continue anticoagulation CHF, stable, EF 10% - - consult cardiology for low EF, get medical record from [place] Coronary artery disease - get records from [place] Neck pain - Cervical Ct has no fracture, start flexeril - c-COLLAR h/o A. fib - on xarelto soft tissue swelling on fore head from IV pole trauma per staff Repeat CT in am UTI, started on rocephin iv DVT Px, on xarelto Disposition: DC/TX-06 HOME [facility]ER [facility] Discussed with cardiology and Nursing staff. History Interval history: Patient seen and examined, no new complaints, still with mild neck malposition, denies any pain. Patient with left hemapeligia from previous stroke. Hospitalist Physical - Physical exam Narrative exam: General appearance: Present: no acute distress, other (elderly) - EENT Eyes: PERRL, EOM intact ENT: hearing intact, clear oral mucosa Ears: bilateral: normal - Neck Neck: supple, normal ROM - Respiratory Respiratory effort: normal Respiratory: bilateral: CTA - Cardiovascular Rhythm: regular Heart Sounds: Present: S1 & S2. Absent: gallop, rub Extremities: pulses intact, No edema, normal color, Full ROM - Gastrointestinal General gastrointestinal: Present: soft, non-tender, non-distended, normal bowel sounds - Integumentary Integumentary: clear, warm, dry - Musculoskeletal Musculoskeletal: 1, strength equal bilaterally - Neurologic Neurologic: other (left sided hameparesis)- MILD NECK STIFFNESS - Psychiatric Psychiatric: appropriate mood/affect - Constitutional Vitals: Temp Pulse Resp BP Pulse Ox 97.6 F 71 16 110/81 97 11/27/17 07:15 11/27/17 12:27 11/27/17 07:15 11/27/17 07:15 11/27/17 07:15 General appearance: Present: no acute distress Results - Labs CBC & Chem 7: 11/27/17 03:36 11/27/17 03:36 Labs: Laboratory Last Values WBC 4.3 K/mm3 (4.5-11.0) L 11/27/17 03:36 RBC 4.35 M/mm3 (3.65-5.03) 11/27/17 03:36 Hgb 13.4 gm/dl (11.8-15.2) 11/27/17 03:36 Hct 40.0 % (35.5-45.6) 11/27/17 03:36 MCV 92 fl (84-94) 11/27/17 03:36 MCH 31 pg (28-32) 11/27/17 03:36 MCHC 33 % (32-34) 11/27/17 03:36 RDW 15.7 % (13.2-15.2) H 11/27/17 03:36 Plt Count 152 K/mm3 (140-440) 11/27/17 03:36 Lymph % (Auto) 22.4 % (13.4-35.0) 11/27/17 03:36 [place] % (Auto) 10.7 % (0.0-7.3) H 11/27/17 03:36 Eos % (Auto) 2.9 % (0.0-4.3) 11/27/17 03:36 Baso % (Auto) 1.2 % (0.0-1.8) 11/27/17 03:36 Lymph # 1.0 K/mm3 (1.2-5.4) L 11/27/17 03:36 [place] # 0.5 K/mm3 (0.0-0.8) 11/27/17 03:36 Eos # 0.1 K/mm3 (0.0-0.4) 11/27/17 03:36 Baso # 0.1 K/mm3 (0.0-0.1) 11/27/17 03:36 Seg Neutrophils % 62.8 % (40.0-70.0) 11/27/17 03:36 Seg Neutrophils # 2.7 K/mm3 (1.8-7.7) 11/27/17 03:36 PT 16.0 Sec. (12.2-14.9) H 11/24/17 19:14 INR 1.21 (0.87-1.13) H 11/24/17 19:14 APTT 30.3 Sec. (24.2-36.6) 11/24/17 19:14 Sodium 138 mmol/L (137-145) 11/27/17 03:36 Potassium 4.0 mmol/L (3.6-5.0) 11/27/17 03:36 Chloride 101.7 mmol/L (98-107) 11/27/17 03:36 Carbon Dioxide 24 mmol/L (22-30) 11/27/17 03:36 Anion Gap 16 mmol/L 11/27/17 03:36 BUN 16 mg/dL (9-20) 11/27/17 03:36 Creatinine 0.9 mg/dL (0.8-1.5) 11/27/17 03:36 Estimated GFR > 60 ml/min 11/27/17 03:36 BUN/Creatinine Ratio 18 % 11/27/17 03:36 Glucose 93 mg/dL (75-100) 11/27/17 03:36 Calcium 9.1 mg/dL (8.4-10.2) 11/27/17 03:36 Total Creatine Kinase 79 units/L (55-170) 11/25/17 00:24 CK-MB (CK-2) 1.8 ng/mL (0.0-4.0) 11/25/17 00:24 CK-MB (CK-2) Rel Index 2.2 (0-4) 11/25/17 00:24 Troponin T 0.041 ng/mL (0.00-0.029) H 11/25/17 00:24 Triglycerides 40 mg/dL (2-149) 11/24/17 19:14 Cholesterol 115 mg/dL (50-199) 11/24/17 19:14 LDL Cholesterol Direct 55 mg/dL (50-130) 11/24/17 19:14 HDL Cholesterol 60 mg/dL (40-59) H 11/24/17 19:14 Cholesterol/HDL Ratio 1.91 % 11/24/17 19:14 Urine Color Yellow (Yellow) 11/24/17 18:54 Urine Turbidity Slightly-cloudy (Clear) 11/24/17 18:54 Urine pH 6.0 (5.0-7.0) 11/24/17 18:54 Ur Specific [place] 1.015 (1.003-1.030) 11/24/17 18:54 Urine Protein <15 mg/dl mg/dL (Negative) 11/24/17 18:54 Urine Glucose (UA) Neg mg/dL (Negative) 11/24/17 18:54 Urine Ketones Neg mg/dL (Negative) 11/24/17 18:54 Urine Blood Neg (Negative) 11/24/17 18:54 Urine Nitrite Neg (Negative) 11/24/17 18:54 Urine Bilirubin Neg (Negative) 11/24/17 18:54 Urine Urobilinogen 4.0 mg/dL (<2.0) 11/24/17 18:54 Ur Leukocyte Esterase Lg (Negative) 11/24/17 18:54 Urine WBC (Auto) 74.0 /HPF (0.0-6.0) H 11/24/17 18:54 Urine RBC (Auto) 12.0 /HPF (0.0-6.0) 11/24/17 18:54 Digoxin 0.6 ng/mL (0.9-2.0) L 11/24/17 17:11
[2017-11-27] MEDS: XARELTO PO SCH (20:39)
[2017-11-27] MEDS: NORCO 5/325 PO PRN (21:59)
--- NOTE | 2017-11-28 08:07 | Cat Scan Report ---
CT HEAD WITH CONTRAST: HISTORY: CVA. TECHNIQUE: Sequential 2.5mm CT images. COMPARISON: CT head without contrast dated 11/24/17. FINDINGS: The large chronic infarct in the right MCA distribution and a small chronic infarct in the right superior cerebellar artery distribution are unchanged in size, configuration and density since the exam 4 days ago. No new area of diminished attenuation is identified. No evidence for hemorrhage, enhancing mass or mass effect. Ventricular size remains within normal limits. The remaining brain parenchyma remains unremarkable. IMPRESSION: Chronic infarcts as described. No acute intracranial process or abnormal enhancement is identified. No change since 11/24/17.
[2017-11-28] MEDS: ROCEPHIN/NS 1 GM/50 ML 1 GM/50 ML BAG IV SCH (13:03)
[2017-11-28] MEDS: NORCO 5/325 PO PRN (13:08)
[2017-11-28] MEDS: FEOSOL PO SCH ×3 (13:08→20:54)
[2017-11-28] MEDS: KEPPRA PO SCH ×2 (13:09→22:39)
[2017-11-28] MEDS: SENOKOT PO SCH (13:09)
[2017-11-28] MEDS: DITROPAN XL PO SCH (13:09)
[2017-11-28] MEDS: FLEXERIL PO PRN (13:10)
[2017-11-28] MEDS: BABY ASPIRIN PO SCH (13:10)
[2017-11-28] MEDS: LANOXIN PO SCH (13:10)
[2017-11-28] MEDS: PROSCAR PO SCH (13:11)
--- NOTE | 2017-11-28 14:52 | Progress Note ---
Assessment and Plan Suspected Seizure Hx of dilated nonischemic cardiomyopathy follows with the [facility] [employer] ICD interrogation this presentation reports no appropriate or inappropriate therapies. Normal functioning device. Hx of paroxysmal atrial fibrillation on oral anticoagulation with Xarelto. Prior CVA Echocardiogram shows a severe dilated cardiomyopathy, ejection fraction 10-15%. On the echocardiogram, he was also noted that there was an echogenic lesion on the ICD wire in the right heart, suggestive of possible thrombus. We will get a K[facility]HIK on Tuesday for further cardiac assessment. Subjective Date of service: 11/28/17 Interval history: Patient is resting in bed and appears comfortable. Objective Vital Signs Temp Pulse Resp BP Pulse Ox 11/28/17 13:10 72 11/28/17 12:52 97.7 F 77 18 95/69 95 11/28/17 09:43 98.5 F 70 18 113/81 96 11/28/17 06:33 98.9 F 64 18 134/68 99 11/28/17 00:31 98.2 F 69 20 114/68 98 11/27/17 21:00 70 11/27/17 20:22 98.9 F 68 20 103/71 98 11/27/17 16:41 97.1 F L 74 18 91/62 98 - Physical Examination General: No Apparent Distress HEENT: Positive: PERRL Cardiac: Positive: Other (paced) Neuro: Positive: Weakness (left hemiplegia) Extremities: Absent: edema Pacemaker: ventricular pacing w/capt
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
--- NOTE | 2017-11-28 16:06 | Progress Note ---
Subjective Date of service: 11/28/17 Interval history: patient seen and further assessed for seizure and prior stroke recommend that the xarelto be continued and IV keppra is ordwered suspect keppra dose was too low plan EEG Thanks will follow Objective - Vital Sign Vital Signs - 12hr 11/28/17 11/28/17 11/28/17 06:33 09:43 12:52 Temperature 98.9 F 98.5 F 97.7 F Pulse Rate 64 70 77 Respiratory 18 Rate Blood Pressure 134/68 113/81 95/69 [Right] O2 Sat by Pulse 99 96 95 Oximetry 11/28/17 13:10 Temperature Pulse Rate 72 Respiratory Rate Blood Pressure [Right] O2 Sat by Pulse Oximetry - Laboratory Findings CBC and BMP: 11/27/17 03:36 11/27/17 03:36 Abnormal Lab Findings: Abnormal Labs 11/24/17 11/24/17 11/24/17 17:11 17:11 17:11 WBC 4.0 L RDW [place] % (Auto) Lymph # PT 15.8 H INR 1.19 H Troponin T HDL Cholesterol Urine WBC (Auto) Digoxin 0.6 L 11/24/17 11/24/17 11/24/17 18:54 19:14 19:14 WBC RDW [place] % (Auto) Lymph # PT 16.0 H INR 1.21 H Troponin T 0.042 H HDL Cholesterol 60 H Urine WBC (Auto) 74.0 H Digoxin 11/25/17 11/27/17 00:24 03:36 WBC 4.3 L RDW 15.7 H [place] % (Auto) 10.7 H Lymph # 1.0 L PT INR Troponin T 0.041 H HDL Cholesterol Urine WBC (Auto) Digoxin
[2017-11-28] MEDS: XARELTO PO SCH (20:54)
--- NOTE | 2017-11-29 01:49 | Consultation ---
HISTORY OF PRESENT ILLNESS: The patient is a 62-year-old black male, who presents with a long history of coronary artery disease, seizure, CVA. The patient had onset of left-sided weakness, atrial fibrillation, congestive heart failure, he fell off a wheelchair, had a seizure. Apparently, the tele-neurology consult was placed on the chart, recommendation was for Keppra therapy since he had missed his medication. He has a prior medical history of being on Xarelto 20 mg for his atrial fibrillation and anticoagulation and on 500 mg b.i.d. of Keppra. PHYSICAL EXAMINATION: On examination now, he is postictal, not speaking, but does respond to voice buy moving his arms. He is semi-alert. Cranial nerves otherwise intact. Motor tone is symmetrical. The patient does not have any focal or motor weakness at the present time, no active seizing activity is present. The patient's visual martino are full, confrontation does track, and follow up with me with his eyes. Speech is not present; however, as he is postictal. IMPRESSION: 1. Acute seizure, probably related to low Keppra level. 2. Prior history of old stroke. 3. Congestive heart failure, on Xarelto therapy. 4. Atrial fibrillation. RECOMMENDATION: Recommend to get EEG. Check his CPK level. JOB# [id number] MCKENZIE/NTS
--- NOTE | 2017-11-29 08:59 | Progress Note ---
Assessment and Plan Assessment and plan: 62 year old male a history of coronary artery disease, seizure, CVA with left- sided weakness, CHF, A. fib, wheel chair bound comes emergency room complaining of having blurred vision and then having a seizure at home. He stated that he fell out of his wheelchair, seizure lasted for a few seconds. He has chronic left-sided weakness and slurred speech which has not worsened Seizure, acute on chronic - - increased dose of keppra to 1500 bid - Neurology consult pending - Repeat ct head Reviewed, no acute pathology Subacute CVA, ruled out, chronic changes per Neuro - cannot Obtain MRI of the head as has ICD, no change in left sided weakness - cont to Do neurochecks, - Consulted physical, occupational therapy, neurology - cont antiplatelet agent, statin h/o CVA with left sided hameparesis w/o worsening symptom - cont aspirin, statin - Chronic changes on CT head Abnormal cardiac enzymes, no chest pain - consulted cardiology -Patient with possible Intercardiac thrombus. KAUSHIK-to be done 11/30 by cardiology -Continue anticoagulation CHF, stable, EF 10% -cardiology following, get medical record from [place] Coronary artery disease - get records from [place] Neck pain - Cervical Ct has no fracture, start flexeril - c-COLLAR h/o A. fib - on xarelto UTI, started on rocephin iv DVT Px, on xarelto For KAUSHIK tomorrow 11/30/17 Discussed with patient and cardiology. Hospitalist Physical - Physical exam Narrative exam: GEN:Not in acute distress, lying in bed HEENT: Normocephalic, atraumatic, Neck: supple, No JVD Lungs: Clear to auscultaion bilaterally, no crackles Heart:S1 and S2 reg, no murmurs, rubs or gallop Abd:soft, non-tender, non-distended, Normal bowel sounds Ext: No edema, clubbing or cyanosis Neuro: Awake, alert, left sided weakness - Constitutional Vitals: Temp Pulse Resp BP Pulse Ox 98.2 F 70 18 109/85 99 11/29/17 04:25 11/29/17 05:00 11/29/17 04:25 11/29/17 04:25 11/29/17 04:25 General appearance: Present: no acute distress Results - Labs CBC & Chem 7: 11/27/17 03:36 11/27/17 03:36 Labs: Laboratory Last Values WBC 4.3 K/mm3 (4.5-11.0) L 11/27/17 03:36 RBC 4.35 M/mm3 (3.65-5.03) 11/27/17 03:36 Hgb 13.4 gm/dl (11.8-15.2) 11/27/17 03:36 Hct 40.0 % (35.5-45.6) 11/27/17 03:36 MCV 92 fl (84-94) 11/27/17 03:36 MCH 31 pg (28-32) 11/27/17 03:36 MCHC 33 % (32-34) 11/27/17 03:36 RDW 15.7 % (13.2-15.2) H 11/27/17 03:36 Plt Count 152 K/mm3 (140-440) 11/27/17 03:36 Lymph % (Auto) 22.4 % (13.4-35.0) 11/27/17 03:36 [place] % (Auto) 10.7 % (0.0-7.3) H 11/27/17 03:36 Eos % (Auto) 2.9 % (0.0-4.3) 11/27/17 03:36 Baso % (Auto) 1.2 % (0.0-1.8) 11/27/17 03:36 Lymph # 1.0 K/mm3 (1.2-5.4) L 11/27/17 03:36 [place] # 0.5 K/mm3 (0.0-0.8) 11/27/17 03:36 Eos # 0.1 K/mm3 (0.0-0.4) 11/27/17 03:36 Baso # 0.1 K/mm3 (0.0-0.1) 11/27/17 03:36 Seg Neutrophils % 62.8 % (40.0-70.0) 11/27/17 03:36 Seg Neutrophils # 2.7 K/mm3 (1.8-7.7) 11/27/17 03:36 PT 16.0 Sec. (12.2-14.9) H 11/24/17 19:14 INR 1.21 (0.87-1.13) H 11/24/17 19:14 APTT 30.3 Sec. (24.2-36.6) 11/24/17 19:14 Sodium 138 mmol/L (137-145) 11/27/17 03:36 Potassium 4.0 mmol/L (3.6-5.0) 11/27/17 03:36 Chloride 101.7 mmol/L (98-107) 11/27/17 03:36 Carbon Dioxide 24 mmol/L (22-30) 11/27/17 03:36 Anion Gap 16 mmol/L 11/27/17 03:36 BUN 16 mg/dL (9-20) 11/27/17 03:36 Creatinine 0.9 mg/dL (0.8-1.5) 11/27/17 03:36 Estimated GFR > 60 ml/min 11/27/17 03:36 BUN/Creatinine Ratio 18 % 11/27/17 03:36 Glucose 93 mg/dL (75-100) 11/27/17 03:36 Calcium 9.1 mg/dL (8.4-10.2) 11/27/17 03:36 Total Creatine Kinase 79 units/L (55-170) 11/25/17 00:24 CK-MB (CK-2) 1.8 ng/mL (0.0-4.0) 11/25/17 00:24 CK-MB (CK-2) Rel Index 2.2 (0-4) 11/25/17 00:24 Troponin T 0.041 ng/mL (0.00-0.029) H 11/25/17 00:24 Triglycerides 40 mg/dL (2-149) 11/24/17 19:14 Cholesterol 115 mg/dL (50-199) 11/24/17 19:14 LDL Cholesterol Direct 55 mg/dL (50-130) 11/24/17 19:14 HDL Cholesterol 60 mg/dL (40-59) H 11/24/17 19:14 Cholesterol/HDL Ratio 1.91 % 11/24/17 19:14 Urine Color Yellow (Yellow) 11/24/17 18:54 Urine Turbidity Slightly-cloudy (Clear) 11/24/17 18:54 Urine pH 6.0 (5.0-7.0) 11/24/17 18:54 Ur Specific [place] 1.015 (1.003-1.030) 11/24/17 18:54 Urine Protein <15 mg/dl mg/dL (Negative) 11/24/17 18:54 Urine Glucose (UA) Neg mg/dL (Negative) 11/24/17 18:54 Urine Ketones Neg mg/dL (Negative) 11/24/17 18:54 Urine Blood Neg (Negative) 11/24/17 18:54 Urine Nitrite Neg (Negative) 11/24/17 18:54 Urine Bilirubin Neg (Negative) 11/24/17 18:54 Urine Urobilinogen 4.0 mg/dL (<2.0) 11/24/17 18:54 Ur Leukocyte Esterase Lg (Negative) 11/24/17 18:54 Urine WBC (Auto) 74.0 /HPF (0.0-6.0) H 11/24/17 18:54 Urine RBC (Auto) 12.0 /HPF (0.0-6.0) 11/24/17 18:54 Digoxin 0.6 ng/mL (0.9-2.0) L 11/24/17 17:11
[2017-11-29] MEDS: ROCEPHIN/NS 1 GM/50 ML 1 GM/50 ML BAG IV SCH (11:56)
[2017-11-29] MEDS: FEOSOL PO SCH ×3 (12:00→21:47)
[2017-11-29] MEDS: KEPPRA PO SCH ×2 (12:01→21:47)
[2017-11-29] MEDS: LANOXIN PO SCH (12:01)
[2017-11-29] MEDS: DITROPAN XL PO SCH (12:02)
[2017-11-29] MEDS: SENOKOT PO SCH (12:03)
[2017-11-29] MEDS: PROSCAR PO SCH (12:03)
[2017-11-29] MEDS: BABY ASPIRIN PO SCH (12:09)
[2017-11-29] MEDS: NORCO 5/325 PO PRN (12:09)
--- NOTE | 2017-11-29 13:05 | Progress Note ---
Assessment and Plan Suspected Seizure Hx of dilated nonischemic cardiomyopathy follows with the [facility] [employer] ICD interrogation this presentation reports no appropriate or inappropriate therapies. Normal functioning device. Hx of paroxysmal atrial fibrillation on oral anticoagulation with Xarelto. Prior CVA Echocardiogram shows a severe dilated cardiomyopathy, ejection fraction 10-15%. On the echocardiogram, he was also noted that there was an echogenic lesion on the ICD wire in the right heart, suggestive of possible thrombus. Recommendations: Continue medical therapy for dilated cardiomyopathy. We will get a KAUSHIK on Tuesday for further cardiac assessment. Subjective Date of service: 11/29/17 Interval history: Patient complains of neck pain, has neck brace in place. Objective Vital Signs Temp Pulse Resp BP BP Pulse Ox 11/29/17 12:01 77 11/29/17 08:37 98.3 F 74 18 113/76 99 11/29/17 05:00 70 11/29/17 04:25 98.2 F 71 18 109/85 99 11/29/17 00:02 98.1 F 68 18 102/73 98 11/28/17 21:12 98.2 F 72 18 102/73 97 11/28/17 20:00 70 11/28/17 17:00 97.4 F L 75 18 132/89 96 11/28/17 13:10 72 - Physical Examination General: No Apparent Distress HEENT: Positive: PERRL Cardiac: Positive: Reg Rate and Rhythm Lungs: Positive: Decreased Breath Sounds Neuro: Positive: Weakness (left hemiplegia) Extremities: Absent: edema Pacemaker: ventricular pacing w/capt
--- NOTE | 2017-11-29 16:13 | Progress Note ---
Subjective Date of service: 11/29/17 Interval history: sweizure free at this time continue same dose of the keppra check EEG Objective - Vital Sign Vital Signs - 12hr 11/29/17 11/29/17 11/29/17 04:25 05:00 08:37 Temperature 98.2 F 98.3 F Pulse Rate 71 70 74 Respiratory 18 18 Rate Blood Pressure 113/76 Blood Pressure 109/85 [Right] O2 Sat by Pulse 99 99 Oximetry 11/29/17 12:01 Temperature Pulse Rate 77 Respiratory Rate Blood Pressure Blood Pressure [Right] O2 Sat by Pulse Oximetry - Laboratory Findings CBC and BMP: 11/27/17 03:36 11/27/17 03:36 Abnormal Lab Findings: Abnormal Labs 11/24/17 11/24/17 11/24/17 17:11 17:11 17:11 WBC 4.0 L RDW [place] % (Auto) Lymph # PT 15.8 H INR 1.19 H Troponin T HDL Cholesterol Urine WBC (Auto) Digoxin 0.6 L 11/24/17 11/24/17 11/24/17 18:54 19:14 19:14 WBC RDW [place] % (Auto) Lymph # PT 16.0 H INR 1.21 H Troponin T 0.042 H HDL Cholesterol 60 H Urine WBC (Auto) 74.0 H Digoxin 11/25/17 11/27/17 00:24 03:36 WBC 4.3 L RDW 15.7 H [place] % (Auto) 10.7 H Lymph # 1.0 L PT INR Troponin T 0.041 H HDL Cholesterol Urine WBC (Auto) Digoxin
[2017-11-29] MEDS: XARELTO PO SCH (19:05)
[2017-11-29] MEDS: FLEXERIL PO PRN (21:47)
--- NOTE | 2017-11-30 10:47 | Progress Note ---
Assessment and Plan Assessment and plan: 62 year old male a history of coronary artery disease, seizure, CVA with left- sided weakness, CHF, A. fib, wheel chair bound comes emergency room complaining of having blurred vision and then having a seizure at home. He stated that he fell out of his wheelchair, seizure lasted for a few seconds. He has chronic left-sided weakness and slurred speech which has not worsened Seizure, acute on chronic - - increased dose of keppra to 1500 bid - Neurology consult pending - Repeat ct head Reviewed, no acute pathology Subacute CVA, ruled out, chronic changes per Neuro - cannot Obtain MRI of the head as has ICD, no change in left sided weakness - cont to Do neurochecks, - Consulted physical, occupational therapy, neurology - cont antiplatelet agent, statin h/o CVA with left sided hameparesis w/o worsening symptom - cont aspirin, statin - Chronic changes on CT head Abnormal cardiac enzymes, no chest pain - consulted cardiology -Continue anticoagulation CHF, stable, EF 10% -cardiology following, get medical record from [place] Coronary artery disease - get records from [place] Neck pain - Cervical Ct has no fracture, start flexeril - c-COLLAR h/o A. fib - on xarelto UTI, started on rocephin iv DVT Px, on Xarelto KAUSHIK cancelled because of neck pain Discussed with patient and cardiology. History Interval history: KAUSHIK cancelled because of neck pain Hospitalist Physical - Physical exam Narrative exam: GEN:Not in acute distress, lying in bed HEENT: Normocephalic, atraumatic, Neck: supple, No JVD Lungs: Clear to auscultaion bilaterally, no crackles Heart:S1 and S2 reg, no murmurs, rubs or gallop Abd:soft, non-tender, non-distended, Normal bowel sounds Ext: No edema, clubbing or cyanosis Neuro: Awake, alert, left sided weakness - Constitutional Vitals: Temp Pulse Resp BP Pulse Ox 98.3 F 69 18 104/75 97 11/30/17 08:41 11/30/17 08:41 11/30/17 08:41 11/30/17 08:41 11/30/17 08:41 General appearance: Present: no acute distress Results - Labs CBC & Chem 7: 11/27/17 03:36 11/27/17 03:36 Labs: Laboratory Last Values WBC 4.3 K/mm3 (4.5-11.0) L 11/27/17 03:36 RBC 4.35 M/mm3 (3.65-5.03) 11/27/17 03:36 Hgb 13.4 gm/dl (11.8-15.2) 11/27/17 03:36 Hct 40.0 % (35.5-45.6) 11/27/17 03:36 MCV 92 fl (84-94) 11/27/17 03:36 MCH 31 pg (28-32) 11/27/17 03:36 MCHC 33 % (32-34) 11/27/17 03:36 RDW 15.7 % (13.2-15.2) H 11/27/17 03:36 Plt Count 152 K/mm3 (140-440) 11/27/17 03:36 Lymph % (Auto) 22.4 % (13.4-35.0) 11/27/17 03:36 [place] % (Auto) 10.7 % (0.0-7.3) H 11/27/17 03:36 Eos % (Auto) 2.9 % (0.0-4.3) 11/27/17 03:36 Baso % (Auto) 1.2 % (0.0-1.8) 11/27/17 03:36 Lymph # 1.0 K/mm3 (1.2-5.4) L 11/27/17 03:36 [place] # 0.5 K/mm3 (0.0-0.8) 11/27/17 03:36 Eos # 0.1 K/mm3 (0.0-0.4) 11/27/17 03:36 Baso # 0.1 K/mm3 (0.0-0.1) 11/27/17 03:36 Seg Neutrophils % 62.8 % (40.0-70.0) 11/27/17 03:36 Seg Neutrophils # 2.7 K/mm3 (1.8-7.7) 11/27/17 03:36 PT 16.0 Sec. (12.2-14.9) H 11/24/17 19:14 INR 1.21 (0.87-1.13) H 11/24/17 19:14 APTT 30.3 Sec. (24.2-36.6) 11/24/17 19:14 Sodium 138 mmol/L (137-145) 11/27/17 03:36 Potassium 4.0 mmol/L (3.6-5.0) 11/27/17 03:36 Chloride 101.7 mmol/L (98-107) 11/27/17 03:36 Carbon Dioxide 24 mmol/L (22-30) 11/27/17 03:36 Anion Gap 16 mmol/L 11/27/17 03:36 BUN 16 mg/dL (9-20) 11/27/17 03:36 Creatinine 0.9 mg/dL (0.8-1.5) 11/27/17 03:36 Estimated GFR > 60 ml/min 11/27/17 03:36 BUN/Creatinine Ratio 18 % 11/27/17 03:36 Glucose 93 mg/dL (75-100) 11/27/17 03:36 Calcium 9.1 mg/dL (8.4-10.2) 11/27/17 03:36 Total Creatine Kinase 79 units/L (55-170) 11/25/17 00:24 CK-MB (CK-2) 1.8 ng/mL (0.0-4.0) 11/25/17 00:24 CK-MB (CK-2) Rel Index 2.2 (0-4) 11/25/17 00:24 Troponin T 0.041 ng/mL (0.00-0.029) H 11/25/17 00:24 Triglycerides 40 mg/dL (2-149) 11/24/17 19:14 Cholesterol 115 mg/dL (50-199) 11/24/17 19:14 LDL Cholesterol Direct 55 mg/dL (50-130) 11/24/17 19:14 HDL Cholesterol 60 mg/dL (40-59) H 11/24/17 19:14 Cholesterol/HDL Ratio 1.91 % 11/24/17 19:14 Urine Color Yellow (Yellow) 11/24/17 18:54 Urine Turbidity Slightly-cloudy (Clear) 11/24/17 18:54 Urine pH 6.0 (5.0-7.0) 11/24/17 18:54 Ur Specific [place] 1.015 (1.003-1.030) 11/24/17 18:54 Urine Protein <15 mg/dl mg/dL (Negative) 11/24/17 18:54 Urine Glucose (UA) Neg mg/dL (Negative) 11/24/17 18:54 Urine Ketones Neg mg/dL (Negative) 11/24/17 18:54 Urine Blood Neg (Negative) 11/24/17 18:54 Urine Nitrite Neg (Negative) 11/24/17 18:54 Urine Bilirubin Neg (Negative) 11/24/17 18:54 Urine Urobilinogen 4.0 mg/dL (<2.0) 11/24/17 18:54 Ur Leukocyte Esterase Lg (Negative) 11/24/17 18:54 Urine WBC (Auto) 74.0 /HPF (0.0-6.0) H 11/24/17 18:54 Urine RBC (Auto) 12.0 /HPF (0.0-6.0) 11/24/17 18:54 Digoxin 0.6 ng/mL (0.9-2.0) L 11/24/17 17:11
--- NOTE | 2017-11-30 10:59 | Progress Note ---
Assessment and Plan Suspected Seizure Neck pain Hx of dilated nonischemic cardiomyopathy follows with the [facility] [employer] ICD interrogation this presentation reports no appropriate or inappropriate therapies. Normal functioning device. Hx of paroxysmal atrial fibrillation on oral anticoagulation with Xarelto. Prior CVA Echocardiogram shows a severe dilated cardiomyopathy, ejection fraction 10-15%. On the echocardiogram, he was also noted that there was an echogenic lesion on the ICD wire in the right heart, suggestive of possible thrombus. Recommendations: Planned KAUSHIK has been canceled. Patient developed a complaint of neck pain with inability to fully flex his neck. He is currently in a soft collar. Continue medical therapy for dilated cardiomyopathy. Subjective Date of service: 11/30/17 Interval history: Planned KAUSHIK has been canceled. Patient developed a complaint of neck pain with inability to fully flex his neck. he is currently in a soft collar. Objective Vital Signs Temp Pulse Resp BP BP Pulse Ox 11/30/17 08:41 98.3 F 69 18 104/75 97 11/30/17 05:00 70 11/30/17 04:26 98.0 F 71 18 102/73 96 11/29/17 23:50 98.1 F 71 17 103/74 95 11/29/17 21:00 71 11/29/17 20:57 97.9 F 65 18 106/71 98 11/29/17 17:32 97.9 F 67 20 100/75 99 11/29/17 12:01 77 - Physical Examination General: No Apparent Distress HEENT: Positive: PERRL Cardiac: Positive: Other (paced) Neuro: Positive: Weakness (left hemiplegia) Extremities: Absent: edema Pacemaker: ventricular pacing w/capt
[2017-11-30] MEDS: BABY ASPIRIN PO SCH (11:39)
[2017-11-30] MEDS: DITROPAN XL PO SCH (11:39)
[2017-11-30] MEDS: LANOXIN PO SCH (11:39)
[2017-11-30] MEDS: SENOKOT PO SCH (11:39)
[2017-11-30] MEDS: PROSCAR PO SCH (11:40)
[2017-11-30] MEDS: FEOSOL PO SCH ×3 (11:40→21:50)
[2017-11-30] MEDS: KEPPRA PO SCH ×2 (11:40→21:51)
[2017-11-30] MEDS: ROCEPHIN/NS 1 GM/50 ML 1 GM/50 ML BAG IV SCH (11:41)
[2017-11-30] MEDS: XARELTO PO SCH (17:24)
[2017-11-30] MEDS: FLEXERIL PO PRN (21:50)
[2017-11-30] MEDS: COREG PO SCH (21:50)
[2017-12-01] MEDS: BABY ASPIRIN PO SCH (11:17)
[2017-12-01] MEDS: KEPPRA PO SCH ×2 (11:17→21:33)
[2017-12-01] MEDS: FEOSOL PO SCH ×3 (11:17→21:33)
[2017-12-01] MEDS: ZESTRIL PO SCH (11:18)
[2017-12-01] MEDS: SENOKOT PO SCH (11:18)
[2017-12-01] MEDS: PROSCAR PO SCH (11:19)
[2017-12-01] MEDS: LANOXIN PO SCH (11:19)
[2017-12-01] MEDS: DITROPAN XL PO SCH (11:20)
[2017-12-01] MEDS: COREG PO SCH ×2 (11:20→21:34)
[2017-12-01] MEDS: ROCEPHIN/NS 1 GM/50 ML 1 GM/50 ML BAG IV SCH (11:20)
--- NOTE | 2017-12-01 11:31 | Progress Note ---
Assessment and Plan Suspected Seizure Neck pain Hx of dilated nonischemic cardiomyopathy follows with the [facility] [employer] ICD interrogation this presentation reports no appropriate or inappropriate therapies. Normal functioning device. Hx of paroxysmal atrial fibrillation on oral anticoagulation with Xarelto. Prior CVA Echocardiogram shows a severe dilated cardiomyopathy, ejection fraction 10-15%. On the echocardiogram, he was also noted that there was an echogenic lesion on the ICD wire in the right heart, suggestive of possible thrombus. Recommendations: Continue medical therapy for dilated cardiomyopathy.y Blood cultures are pending results. KAUSHIK will not change house attendant at this stage unless blood cultures are positive Subjective Date of service: 12/01/17 Interval history: Patient has no cardiac complaints. Continues with neck and back pain from recent fall. Objective Vital Signs Temp Pulse Resp BP Pulse Ox 12/01/17 11:20 72 91/64 12/01/17 11:19 72 91/64 12/01/17 11:18 72 91/64 12/01/17 06:03 98.3 F 18 84/55 12/01/17 05:00 79 12/01/17 00:12 98.2 F 79 18 104/76 98 11/30/17 21:50 73 103/66 11/30/17 21:00 66 11/30/17 20:12 98.5 F 70 18 103/66 98 11/30/17 17:03 98.9 F 71 18 94/68 99 11/30/17 11:39 69 104/75 - Physical Examination General: No Apparent Distress HEENT: Positive: PERRL Cardiac: Positive: Other (paced) Neuro: Positive: Weakness (left hemiplegia) Extremities: Absent: edema Pacemaker: ventricular pacing w/capt
--- NOTE | 2017-12-01 14:44 | Progress Note ---
Hospitalist Physical - Constitutional Vitals: Temp Pulse Resp BP Pulse Ox 98.3 F 72 18 91/64 98 12/01/17 06:03 12/01/17 11:20 12/01/17 06:03 12/01/17 11:20 12/01/17 00:12 General appearance: Present: no acute distress Results - Labs CBC & Chem 7: 11/27/17 03:36 11/27/17 03:36 Labs: Laboratory Last Values WBC 4.3 K/mm3 (4.5-11.0) L 11/27/17 03:36 RBC 4.35 M/mm3 (3.65-5.03) 11/27/17 03:36 Hgb 13.4 gm/dl (11.8-15.2) 11/27/17 03:36 Hct 40.0 % (35.5-45.6) 11/27/17 03:36 MCV 92 fl (84-94) 11/27/17 03:36 MCH 31 pg (28-32) 11/27/17 03:36 MCHC 33 % (32-34) 11/27/17 03:36 RDW 15.7 % (13.2-15.2) H 11/27/17 03:36 Plt Count 152 K/mm3 (140-440) 11/27/17 03:36 Lymph % (Auto) 22.4 % (13.4-35.0) 11/27/17 03:36 [place] % (Auto) 10.7 % (0.0-7.3) H 11/27/17 03:36 Eos % (Auto) 2.9 % (0.0-4.3) 11/27/17 03:36 Baso % (Auto) 1.2 % (0.0-1.8) 11/27/17 03:36 Lymph # 1.0 K/mm3 (1.2-5.4) L 11/27/17 03:36 [place] # 0.5 K/mm3 (0.0-0.8) 11/27/17 03:36 Eos # 0.1 K/mm3 (0.0-0.4) 11/27/17 03:36 Baso # 0.1 K/mm3 (0.0-0.1) 11/27/17 03:36 Seg Neutrophils % 62.8 % (40.0-70.0) 11/27/17 03:36 Seg Neutrophils # 2.7 K/mm3 (1.8-7.7) 11/27/17 03:36 PT 16.0 Sec. (12.2-14.9) H 11/24/17 19:14 INR 1.21 (0.87-1.13) H 11/24/17 19:14 APTT 30.3 Sec. (24.2-36.6) 11/24/17 19:14 Sodium 138 mmol/L (137-145) 11/27/17 03:36 Potassium 4.0 mmol/L (3.6-5.0) 11/27/17 03:36 Chloride 101.7 mmol/L (98-107) 11/27/17 03:36 Carbon Dioxide 24 mmol/L (22-30) 11/27/17 03:36 Anion Gap 16 mmol/L 11/27/17 03:36 BUN 16 mg/dL (9-20) 11/27/17 03:36 Creatinine 0.9 mg/dL (0.8-1.5) 11/27/17 03:36 Estimated GFR > 60 ml/min 11/27/17 03:36 BUN/Creatinine Ratio 18 % 11/27/17 03:36 Glucose 93 mg/dL (75-100) 11/27/17 03:36 Calcium 9.1 mg/dL (8.4-10.2) 11/27/17 03:36 Total Creatine Kinase 79 units/L (55-170) 11/25/17 00:24 CK-MB (CK-2) 1.8 ng/mL (0.0-4.0) 11/25/17 00:24 CK-MB (CK-2) Rel Index 2.2 (0-4) 11/25/17 00:24 Troponin T 0.041 ng/mL (0.00-0.029) H 11/25/17 00:24 Triglycerides 40 mg/dL (2-149) 11/24/17 19:14 Cholesterol 115 mg/dL (50-199) 11/24/17 19:14 LDL Cholesterol Direct 55 mg/dL (50-130) 11/24/17 19:14 HDL Cholesterol 60 mg/dL (40-59) H 11/24/17 19:14 Cholesterol/HDL Ratio 1.91 % 11/24/17 19:14 Urine Color Yellow (Yellow) 11/24/17 18:54 Urine Turbidity Slightly-cloudy (Clear) 11/24/17 18:54 Urine pH 6.0 (5.0-7.0) 11/24/17 18:54 Ur Specific [place] 1.015 (1.003-1.030) 11/24/17 18:54 Urine Protein <15 mg/dl mg/dL (Negative) 11/24/17 18:54 Urine Glucose (UA) Neg mg/dL (Negative) 11/24/17 18:54 Urine Ketones Neg mg/dL (Negative) 11/24/17 18:54 Urine Blood Neg (Negative) 11/24/17 18:54 Urine Nitrite Neg (Negative) 11/24/17 18:54 Urine Bilirubin Neg (Negative) 11/24/17 18:54 Urine Urobilinogen 4.0 mg/dL (<2.0) 11/24/17 18:54 Ur Leukocyte Esterase Lg (Negative) 11/24/17 18:54 Urine WBC (Auto) 74.0 /HPF (0.0-6.0) H 11/24/17 18:54 Urine RBC (Auto) 12.0 /HPF (0.0-6.0) 11/24/17 18:54 Digoxin 0.6 ng/mL (0.9-2.0) L 11/24/17 17:11
[2017-12-01] MEDS: XARELTO PO SCH (17:55)
[2017-12-01] MEDS: FLEXERIL PO PRN (21:33)
[2017-12-02] MEDS: KEPPRA PO SCH (11:01)
[2017-12-02] MEDS: SENOKOT PO SCH (11:01)
[2017-12-02] MEDS: PROSCAR PO SCH (11:01)
--- NOTE | 2017-12-02 11:02 | Progress Note ---
Assessment and Plan Suspected Seizure Neck pain following recent fall from w/c Hx of dilated nonischemic cardiomyopathy follows with the [facility] [place] ICD interrogation this presentation reports no appropriate or inappropriate therapies. Normal functioning device. Hx of paroxysmal atrial fibrillation on oral anticoagulation with Xarelto. Prior CVA Echocardiogram shows a severe dilated cardiomyopathy, ejection fraction 10-15%. On the echocardiogram, he was also noted that there was an echogenic lesion on the ICD wire in the right heart, suggestive of possible thrombus. Negative blood cultures thus far. Recommendations: Continue medical therapy for dilated cardiomyopathy. Otherwise, conservative cardiac management. Subjective Date of service: 12/02/17 Interval history: Patient has no cardiac complaints. Blood cultures are negative thus far. Objective Vital Signs Temp Pulse Resp BP BP Pulse Ox 12/02/17 09:08 98.1 F 70 20 106/76 98 12/02/17 05:00 65 12/02/17 00:45 98.3 F 76 20 98/65 95 12/01/17 21:34 70 97/62 12/01/17 21:00 70 12/01/17 20:54 70 20 97/62 98 12/01/17 20:30 20 97 12/01/17 16:34 98.6 F 70 18 100/69 100 12/01/17 13:00 70 12/01/17 11:20 72 91/64 12/01/17 11:19 72 /64 12/01/17 11:18 72 91/64 - Physical Examination General: No Apparent Distress HEENT: Positive: PERRL Cardiac: Positive: Other (paced) Neuro: Positive: Weakness (left hemiplegia) Extremities: Absent: edema Pacemaker: ventricular pacing w/capt
[2017-12-02] MEDS: BABY ASPIRIN PO SCH (11:03)
[2017-12-02] MEDS: ZESTRIL PO SCH (11:03)
[2017-12-02] MEDS: LANOXIN PO SCH (11:04)
[2017-12-02] MEDS: COREG PO SCH (11:04)
[2017-12-02] MEDS: DITROPAN XL PO SCH (11:05)
[2017-12-02] MEDS: ROCEPHIN/NS 1 GM/50 ML 1 GM/50 ML BAG IV SCH (11:10)
[2017-12-02] MEDS: FEOSOL PO SCH ×2 (11:10→14:34)
--- NOTE | 2017-12-02 11:48 | Discharge Summary ---
Providers - Providers Date of Admission: 11/24/17 22:47 Date of discharge: 12/02/17 Attending physician: SEBLE COLEMAN 11/25/17 00:09 Occupational Therapy Evaluate and Treat [CONS] Routine Comment: Reason For Exam: Neuro deficits Physical Therapy Evaluation and Treat [CONS] Routine Comment: Reason For Exam: Neuro deficits 11/26/17 14:01 Consult to Physician [CONS] Routine Comment: Consulting Provider: SABINO GUZMAN Physician Instructions: Reason For Exam: CHF 11/27/17 09:25 Consult to Case Management [CONS] Routine Services Needed at Discharge: Phosphoric Acid Operator Notified:: Case managment Additional Physician Instructions: discharge logistics 11/28/17 15:29 Consult to Physician [CONS] Routine Comment: Consulting Provider: HORTENSIA JAMES Physician Instructions: Reason For Exam: seizure Primary care physician: SLEEVE SETTER LOCKSTITCH Hospitalization Condition: Good Disposition: DC/[place]-06 HOME UNDER HOME [facility] Core Measure Documentation - Palliative Care Palliative Care/ Comfort Measures: Not Applicable - Core Measures Any of the following diagnoses?: stroke - Stroke Discharge Requirements Statin for LDL = or >70 mg/dl on DC: Yes Anticoag for atrial fib/atrial flutter: Yes Antithrombotic for ischemic stroke: Yes Exam - Constitutional Vitals: Temp Pulse Resp BP Pulse Ox 98.1 F 70 20 106/76 98 12/02/17 09:08 12/02/17 11:04 12/02/17 09:08 12/02/17 11:04 12/02/17 09:08 Plan Activity: advance as tolerated Diet: low fat, low cholesterol, low salt Additional Instructions: 1.Follow up with PCP in 1 week. 2.Follow up with Dr. Guzman in 1 week. 3.Follow up with Dr. James in 1 week Follow up with: SABINO GUZMAN MD [Staff Physician] - 7 Days ARGENIS SPENCE MD [Primary Care Provider] - 3-5 Days HORTENSIA JAMES MD [Staff Physician] - 7 Days Prescriptions: Ciprofloxacin HCl [Ciprofloxacin TAB] 500 mg PO Q12HR #6 tab Cyclobenzaprine [Flexeril 10 MG TAB] 10 mg PO BID PRN #30 tablet PRN Reason: Muscle Spasm HYDROcodone/APAP 5-325 [[place] 5-325 mg TAB] 1 each PO Q6H PRN #14 tablet PRN Reason: Pain, Moderate (4-6) levETIRAcetam [Keppra TAB] 1,500 mg PO BID #60 tablet
[2017-12-02 15:24] VITALS: BP 99/69
[2017-12-02] MEDS: XARELTO PO SCH (16:28)
== END 2017-12-02 18:59 | disposition home health service (06) | DRG 101 ==
LOC: ED 16:01 → 4A 22:47
PROVIDERS: ADMIT Internal Medicine; ATTEND Internal Medicine
PROC: 4B02XTZ Measurement of Cardiac Defibrillator, External Approach (ICD-10-PCS; principal; 2017-11-28)
DX: G40.909 Epilepsy, unspecified, not intractable, without status epilepticus (principal); N39.0 Urinary tract infection, site not specified; I42.0 Dilated cardiomyopathy; I69.354 Hemiplegia and hemiparesis following cerebral infarction affecting left non-dominant side; I50.22 Chronic systolic (congestive) heart failure; I25.10 Atherosclerotic heart disease of native coronary artery without angina pectoris; M54.9 Dorsalgia, unspecified; I48.0 Paroxysmal atrial fibrillation; I51.3 Intracardiac thrombosis, not elsewhere classified; W05.0XXA Fall from non-moving wheelchair, initial encounter; Y93.89 Activity, other specified; Y92.89 Other specified places as the place of occurrence of the external cause; Y99.8 Other external cause status; Z99.3 Dependence on wheelchair; Z79.01 Long term (current) use of anticoagulants; Z95.810 Presence of automatic (implantable) cardiac defibrillator
CPT/HCPCS: 36415; 70450; 70460; 72020; 72125; 80048; 80061; 80162; 81001; 82550; 82553; 84484; 85025; 85027; 85610; 85730; 87040; 93005; 93010; 93306; 96374; 96375; A9270-GY; G8978-GP; G8979-GP; J0696; J1953; J3010; Q9967